=== PATIENT | female | born 1960 | race Caucasian/White ===

== ENCOUNTER 2022-12-30 13:25 | Outpatient (CLI) | payer MEDICARE, SELFPAY | END 2022-12-30 13:26 | disposition home or self-care (01) | LOC: INJ CL 13:27 | PROVIDERS: PCP Family Medicine; Visit Provider Family Medicine | DX: M17.11 Unilateral primary osteoarthritis, right knee (principal); M25.561 Pain in right knee | CPT/HCPCS: 64454 ==

== ENCOUNTER 2023-01-27 13:11 | Outpatient (CLI) | payer MEDICARE, SELFPAY | END 2023-01-27 13:12 | disposition home or self-care (01) | LOC: INJ CL 13:12 | PROVIDERS: PCP Family Medicine; Visit Provider Family Medicine | DX: M17.11 Unilateral primary osteoarthritis, right knee (principal); G89.29 Other chronic pain; M25.561 Pain in right knee | CPT/HCPCS: 64624; J2250; J3010 ==

== ENCOUNTER 2024-02-09 14:11 | Outpatient (CLI) | payer MEDICARE, SELFPAY | END 2024-02-09 14:12 | disposition home or self-care (01) | LOC: INJ CL 14:12 | PROVIDERS: PCP Family Medicine; Visit Provider Family Medicine | DX: M17.11 Unilateral primary osteoarthritis, right knee (principal); M25.561 Pain in right knee | CPT/HCPCS: 64454 ==

== ENCOUNTER 2024-02-16 12:56 | Outpatient (CLI) | payer MEDICARE, SELFPAY | END 2024-02-16 12:57 | disposition home or self-care (01) | LOC: INJ CL 12:56 | PROVIDERS: PCP Family Medicine; Visit Provider Family Medicine | DX: M17.11 Unilateral primary osteoarthritis, right knee (principal); M25.561 Pain in right knee | CPT/HCPCS: 64624; J2250; J3010 ==

== ENCOUNTER 2024-04-12 14:05 | Outpatient (CLI) | payer MEDICARE, SELFPAY | END 2024-04-12 14:06 | disposition home or self-care (01) | LOC: INJ CL 14:05 | PROVIDERS: PCP Family Medicine; Visit Provider Family Medicine | DX: M17.12 Unilateral primary osteoarthritis, left knee (principal); M25.562 Pain in left knee | CPT/HCPCS: 64454 ==